=== PATIENT | female | born 1990 | race Caucasian/White ===

== ENCOUNTER 2016-09-28 02:50 | Emergency (ER) | payer BC ==
[2016-09-28 03:01] VITALS: BP 138/92
--- NOTE | 2016-09-28 03:13 | EDM.PDOC ---
ED HPI GI/ABDOMINAL - General Chief Complaint: Abdominal Pain Stated Complaint: UPPER ABDOMINAL PAIN Time Seen by Provider: 09/28/16 03:05 Source of Information: Reports: Patient History Limitations: Reports: No limitations - History of Present Illness INITIAL COMMENTS - FREE TEXT/NARRATIVE: 25-year-old female presents the ED with recurrent bouts of epigastric and right upper quadrant abdominal pain radiating through to her back in the infrascapular area. She states these attacks often help later in the evening before she goes to bed tonight is quite bad and did not settle with Tylenol or Motrin as it has in the past. Been having these type of attacks about every second night for several months. She's had 2 previous pregnancies. No history of documented gallstones. The pain has never made her vomit. All function she reports is normal. Denies any chance of is currently is menstruating. She also has a Norplant in place. No previous abdominal surgeries. It is constant with a colicky component. No heartburn or GERD symptoms except when she was . No burping or belching to relieve discomfort. Timing/Duration: Reports: Week(s):, Intermittent Location: other (Epigastric and across the upper abdomen bilaterally. Radiates through to her mid back at times.) Quality: Reports: ache, cramping, stabbing Severity: moderate (Her pain is rated as 5 or 6/10.) Improves with: Reports: other (Nothing seems to make it better or worse.) Context: Denies: sick contact, bad/questionable food, out of country travel, recent surgery, recent trauma, lifting, activity/exercise, other Associated Symptoms (-Female): Reports: back pain. Denies: chest pain, groin pain (Between her shoulder blades.), shoulder pain, constipation, diarrhea, bloody stools, fever/chills, loss of appetite, malaise, nausea/vomiting, other Treatments [employer]: Reports: Acetaminophen - Related Data Allergies/ADRs: Allergies Allergy/AdvReac Type Severity Reaction Status Date / Time No Known Allergies Allergy Verified 09/28/16 03:01 Home Meds: Home Meds . 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 Social & Family History - Tobacco Use Smoking Status *Q: Current Every Day Smoker Years of Tobacco use: 5 Packs/Tins Daily: 0.3 Used Tobacco, but Quit: No Second Hand Smoke Exposure: No - Caffeine Use Caffeine Use: Reports: Coffee, Tea - Recreational Drug Use Recreational Drug Use: No - Living Situation & Occupation Living situation: Reports: ED ROS GENERAL - Review of Systems Review Of Systems: See Below Constitutional: Denies: fever, chills, malaise, weakness, night sweats, diaphoresis, decreased appetite, weight loss HEENT: Reports: No symptoms Respiratory: Reports: No Symptoms Cardiovascular: Reports: No symptoms Endocrine: Reports: no symptoms GI/Abdominal: Reports: Abdominal pain (See history present illness). Denies: Black stool, Constipation, Diarrhea, Decreased appetite, Distension, Flatus, Hematemesis, Hematochezia, Melena, Mucous in stool, Nausea, Stool incontinence, Vomiting : Reports: no symptoms Musculoskeletal: Reports: no symptoms Skin: Reports: no symptoms Neurological: Reports: No Symptoms Psychiatric: Reports: No symptoms Hematologic/Lymphatic: Reports: no symptoms Immunologic: Reports: no symptoms ED EXAM, GI/ABD - Physical Exam Exam: See Below Exam Limited By: No limitations General Appearance: alert, WD/WN, no apparent distress Eyes: bilateral: normal appearance (No jaundice) Throat/Mouth: Normal inspection, Normal lips, Normal oropharynx Head: atraumatic, normocephalic Neck: normal inspection, supple, non-tender, full range of motion. No: carotid bruit, lymphadenopathy (L), lymphadenopathy (R), thyromegaly Respiratory/Chest: no respiratory distress, lungs clear, normal breath sounds, no accessory muscle use Cardiovascular: normal peripheral pulses, regular rate, rhythm, no edema, no gallop, no murmur GI/Abdominal: soft, non tender, no organomegaly, no abnormal bruit, no mass, hyperactive bowel sounds (Throughout all 4 quadrants.), other (Mild fullness appreciated of the right hemicolon.). No: Healy's sign Back Exam: normal inspection, full range of motion. No: CVA tenderness (L), CVA tenderness (R) Extremities: normal inspection, normal range of motion, non-tender, no pedal edema, normal capillary refill Neurological: alert, oriented, CN II-XII intact, normal cognition, normal gait, normal reflexes, no motor/sensory deficits Psychiatric: normal affect, normal mood Skin Exam: Warm, Dry, Intact, Normal color Course - Vital Signs Last Recorded V/S: Last Vital Signs Temp 36.6 C 09/28/16 02:57 Pulse 96 09/28/16 02:57 Resp 17 09/28/16 02:57 BP 138/92 H 09/28/16 02:57 Pulse Ox 100 09/28/16 02:57 - Orders/Labs/Meds Orders: Active Orders 24 hr Category Date Time Status Peripheral IV Care [RC] . DIRECTED Care 09/28/16 03:14 Active Abdomen 1V Flat [CR] Stat Exams 09/28/16 03:13 Taken Ketorolac [Toradol] Med 09/28/16 04:00 Active 30 mg IVPUSH ONETIME Sodium Chloride 0.9% [Saline Flush] Med 09/28/16 03:14 Active 10 ml FLUSH ASDIRECTED PRN Peripheral IV Insertion Adult [OM.PC] Stat Oth 09/28/16 03:14 Ordered Medication Orders Ketorolac Tromethamine (Toradol) 30 mg IVPUSH ONETIME [facility] Last Admin: 09/28/16 03:52 Dose: 30 mg Sodium Chloride (Saline Flush) 10 ml FLUSH ASDIRECTED PRN PRN Reason: Keep Vein Open Last Admin: 09/28/16 03:33 Dose: 10 ml Labs: Laboratory Tests 09/28/16 09/28/16 Range/Units 03:33 03:33 WBC 6.59 (3.98-10.04) K/mm3 RBC 5.17 (3.98-5.22) M/mm3 Hgb 15.6 (11.2-15.7) gm/L Hct 45.9 H (34.1-44.9) % MCV 88.8 (79.4-94.8) fl MCH 30.2 (25.6-32.2) pg MCHC 34.0 (32.2-35.5) g/dl RDW Std Deviation 41.0 (36.4-46.3) fL Plt Count 225 (182-369) K/mm3 MPV 10.3 (9.4-12.3) fl Neutrophils % (Manual) 49 (40-60) % Band Neutrophils % 0 (0-10) % Lymphocytes % (Manual) 44 H (20-40) % Atypical Lymphs % 0 % Monocytes % (Manual) 5 (2-10) % Eosinophils % (Manual) 2 (0.7-5.8) % Basophils % (Manual) 0 L (0.1-1.2) Platelet Estimate Adequate RBC Morph Comment Not Reportable Sodium 140 (136-145) mEq/L Potassium 3.6 (3.5-5.1) mEq/L Chloride 105 (98-107) mEq/L Carbon Dioxide 26 (21-32) mEq/L Anion Gap 12.6 (5-15) BUN 15 (7-18) mg/dL Creatinine 0.8 (0.55-1.02) mg/dL Est Cr Clr Drug Dosing 86.15 mL/min Estimated GFR (MDRD) > 60 (>60) mL/min BUN/Creatinine Ratio 18.8 H (14-18) Glucose 113 H (74-106) mg/dL Calcium 9.0 (8.5-10.1) mg/dL Total Bilirubin 0.4 (0.2-1.0) mg/dL AST 12 L (15-37) U/L ALT 17 (14-59) U/L Alkaline Phosphatase 50 (46-116) U/L C-Reactive Protein < 0.2 (<1.0) mg/dL Total Protein 8.5 H (6.4-8.2) g/dl Albumin 4.8 (3.4-5.0) g/dl Globulin 3.7 gm/dL Albumin/Globulin Ratio 1.3 (1-2) Lipase 176 (73-393) U/L Meds: Medications Generic Name Dose Route Start Last Admin Trade Name Freq PRN Reason Stop Dose Admin Ketorolac Tromethamine 30 mg 09/28/16 04:00 09/28/16 03:52 Toradol IVPUSH 30 mg ONETIME MAIRA Administration Sodium Chloride 10 ml 09/28/16 03:14 09/28/16 03:33 Saline Flush FLUSH 10 ml ASDIRECTED PRN Administration Keep Vein Open Discontinued Medications Generic Name Dose Route Start Last Admin Trade Name Freq PRN Reason Stop Dose Admin Hyoscyamine 0.125 mg 09/28/16 03:14 09/28/16 03:32 Hyomax-Sl SL 09/28/16 03:15 0.125 mg ONETIME ONE Administration Magnesium Citrate 240 ml 09/28/16 04:35 Citrate Of Magnesia PO 09/28/16 04:36 ONETIME ONE - Radiology Interpretation Free Text/Narrative:: 25-year-old female presents the ED with with reported recurrent bouts of epigastric and upper abdominal pain almost every other night for the last couple of months. Pain usually starts in later in the evening before going to bed and can last several hours. Closely shift no associated nausea vomiting or diarrhea. No relationship to ED. P.m. tonight is radiating through to her mid back. She states that at times it has done this in the past. No documented history of gallstones. Benign abdominal examination of hyperactive bowel sounds. Plan peripheral IV lock to be started. We'll give Levsin 0.125 mg sublingually to see if it alleviates the discomfort. KUB to be done. Routine labs to include a lipase and CRP. I will do a bedside ultrasound of her gallbladder.. - Re-Assessments/Exams Free Text/Narrative Re-Assessment/Exam: 09/28/16 03:48 KUB reveals increased stool throughout the right hemicolon and hepatic flexure and into the mid transverse colon. Bedside ultrasound performed shows a normal gallbladder and common bile duct without any signs of stones or pericholecystic fluid. Levsin under the tongue did not do much for her pain. She still rates the pain as a 4 5/10. Since she is driving we'll try Toradol 30 mg IV to see if that will alleviate her pain. 09/28/16 04:35 labs are back and are completely normal with a normal white count is 6.59. Chemistry including lipase is normal CRP was less than 0.2. Her pain is much improved after the Toradol 30 mg intravenously. Plan problem appears to be secondary to right hemicolon constipation. Syndrome with 8 ounces of Citroma mixed with 45 ounces of juice of choice to provide bowel cleanse. We discussed the use of MiraLax powder of similar symptoms develop using 17 g one scoop daily or every other day to prevent similar type problem. She'll follow up with her personal care provider of any further problems occur. Departure - Departure Time of Disposition: 04:37 Disposition: Home, Self-Care 01 Condition: fair Clinical Impression: Constipation by delayed colonic transit Abdominal pain Qualifiers: Abdominal location: epigastric Qualified Code(s): R10.13 - Epigastric pain Instructions: Constipation, Adult, [id number], Abdominal Pain, Adult, Easy-to -Read Referrals: PCP,None [Primary Care Provider] - Forms: ED Department Discharge Additional Instructions: Evaluation in the emergency room tonight in regards to recurrence right upper quadrant epigastric abdominal pain radiating through to the back. No associated nausea or vomiting. Pain is strongly colicky. Examination reveals scaphoid abdomen with lots of hyperactive bowel sounds suggesting bowels working very hard to push something along. No evidence of gallbladder disease on examination. X-ray of the abdomen done reveals increased stool throughout the right hemicolon and up into the right upper quadrant and towards the epigastrium compatible or your pain is. Lab work done reveals no evidence of gallbladder or pancreatic disease. White count was also normal suggesting no evidence of any kind of infection. Bedside ultrasound also revealed a normal gallbladder without any stones. You're treated with initially dose of Levsin under the tongue which did not help much. Subsequently given Toradol 30 mg intravenously for pain relief which seemed to work quite well. Treatment is suggested to be Citroma 8 ounces by mouth next with 4-5 ounces of juice of choice taken by mouth once. This usually start work in one to 2 hours and will usually the bowels work for 5 times alternating and some degree of diarrhea. This should provide bowel cleanse. I would suggest using MiraLax powder 17 g daily for approximately 7-10 days after bowel clans to prevent similar problem in ensure regular bowel function. Followup with personal care physician if any further problems occur. - My Orders Last 24 Hours: My Active Orders 09/28/16 03:13 Abdomen 1V Flat [CR] Stat 09/28/16 03:14 Peripheral IV Care [RC] . DIRECTED Sodium Chloride 0.9% [Saline Flush] 10 ml FLUSH ASDIRECTED PRN Peripheral IV Insertion Adult [OM.PC] Stat 09/28/16 04:00 Ketorolac [Toradol] 30 mg IVPUSH ONETIME - Assessment/Plan Last 24 Hours: My Active Orders 09/28/16 03:13 Abdomen 1V Flat [CR] Stat 09/28/16 03:14 Peripheral IV Care [RC] . DIRECTED Sodium Chloride 0.9% [Saline Flush] 10 ml FLUSH ASDIRECTED PRN Peripheral IV Insertion Adult [OM.PC] Stat 09/28/16 04:00 Ketorolac [Toradol] 30 mg IVPUSH ONETIME
[2016-09-28] MEDS ORDERED: Sodium Chloride 0.9% 10 ML Syringe FLUSH PRN (03:14)
[2016-09-28] MEDS ORDERED: Hyoscyamine 0.125 MG Tab.SL SL ONE (03:14)
[2016-09-28] MEDS ORDERED: Ketorolac 30 MG/ML SDV IVPUSH SCH (04:00)
[2016-09-28] MEDS ORDERED: Magnesium Citrate Solution 296 ML Bottle PO ONE (04:35)
--- NOTE | 2016-09-28 07:43 | CR ---
Abdomen: Supine view of the abdomen was obtained. Mild increased stool is noted throughout the colon. Bowel gas pattern is otherwise unremarkable. No abnormal calcifications or discrete soft tissue abnormality is seen. Bony structures are unremarkable. Impression: 1. Nothing acute is identified on supine abdominal x-ray, incidental note of mild increased stool within the colon. Diagnostic code #2
== END 2016-09-28 04:50 | disposition home or self-care (01) ==
LOC: JD.ED 02:50
DX: K59.01 Slow transit constipation (principal); R10.13 Epigastric pain; R10.11 Right upper quadrant pain; F17.210 Nicotine dependence, cigarettes, uncomplicated
CPT/HCPCS: 36415; 74000; 80053; 83690; 85025; 86140; 96374; 99284; A9270; J1885; J7050

== ENCOUNTER 2017-01-27 13:42 | Emergency (ER) | payer SELFPAY ==
[2017-01-27 14:01] VITALS: BP 119/73
--- NOTE | 2017-01-27 15:21 | CR ---
Thoracic spine: AP and lateral views of the thoracic spine were obtained. Mild scoliosis is noted. Vertebral body heights and disc spaces are maintained. Pedicles are intact. No fracture or subluxation is seen. Impression: 1. Mild scoliosis. Two-view thoracic spine study is otherwise unremarkable. Diagnostic code #2
--- NOTE | 2017-01-27 15:25 | EDM.PDOC ---
ED HPI GENERAL MEDICAL PROBLEM - General Chief Complaint: Abdominal Pain Stated Complaint: BACK/ABD PAIN Time Seen by Provider: 01/27/17 14:30 Source of Information: Reports: Patient History Limitations: Reports: No Limitations - History of Present Illness INITIAL COMMENTS - FREE TEXT/NARRATIVE: 26-year-old female presents for evaluation and treatment of mid back pain. Patient reports that she is experiencing pain in her mid to lower back that radiates through her into her epigastric area. She states this has been going on for a at least 2 years. She describes as a sharp pain. She reports that she woke up with this pain this morning. Has been constant throughout the day. Normally it is more episodic in nature. is present at bedside and states that she seemed to be having spasms en route to the ER. She was seen in the ER in September for this problem. She had labs and a abdominal x-ray performed which were essentially negative. Reports that she was also seen at [place] for the back pain. She was given nabumetone twice a day which did not seem to give any pain relief. She was also set up with physical therapy but was unable to go due to family commitments. She now has a appointment scheduled with [facility] in [place] tomorrow for the back pain. She reports 2 years ago she developed this back pain after having an epidural and giving to a boy. She then had a nexplanon placed. She denies any fevers, nausea, vomiting, diarrhea, constipation or any pain into her legs. No numbness or tingling into the legs. Last bowel movement was yesterday. Unsure of her last menstrual period as she has a nexplanon in place. 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 Denies: Nausea, Vomiting : Reports: No Symptoms Musculoskeletal: Reports: Back Pain (mid back radiating through abdomen to the epigastric area). Denies: Leg Pain Neurological: Denies: Numbness, Tingling ED EXAM, UPPER BACK/NECK PAIN - Physical Exam Exam: See Below Exam Limited By: No Limitations General Appearance: Alert, WD/WN, No Apparent Distress Ears Exam: Normal External Exam Nose Exam: Normal Inspection Throat/Mouth Exam: Normal Inspection, Normal Voice, No Airway Compromise Neck Exam: Non-Tender, Normal Alignment, Normal Inspection. No: Tender Lateral , Tender Midline Cardiovascular/Respiratory: Regular Rate, Rhythm, No M/R/G, Normal Breath Sounds , No Respiratory Distress GI/Abdominal: Normal Bowel Sounds, Soft, Non-Tender Back Exam: Normal Inspection, Full Range of Motion, Muscle Spasm (right mid back around t8-t12), Paraspinal Tenderness (left mid back around t8-t12). No: Decreased Range of Motion, Vertebral Tenderness Neurologic: Alert, Normal Mood/Affect Psychiatric: Normal Affect, Normal Mood Skin Exam: Normal Color, Warm/Dry. No: Rash Course - Vital Signs Last Recorded V/S: Last Vital Signs Temp 36.2 C 01/27/17 13:55 Pulse 69 01/27/17 13:55 Resp 16 01/27/17 13:55 BP 119/73 01/27/17 13:55 Pulse Ox 100 01/27/17 13:55 - Radiology Interpretation Free Text/Narrative:: xray of the thoracic spine impression per Dr. Kyle: Mild scoliosis. two-view spine study is otherwise unremarkable CT Results Date: 01/27/17 - Re-Assessments/Exams Free Text/Narrative Re-Assessment/Exam: 01/27/17 14:39 Discussed with the patient what she would like from today's visit. She has an appointment with [facility] tomorrow. She has been seen twice previously for this problem - one here in the ER and another time at [place]. I reviewed the patient's September ER visit. Labs and abdominal xray completed. Something like pancreatitis unlikely given the prolonged time period. Other acute abdominal problems also unlikely given the longevity of her problem. We decided to go ahead and get an xray of her back for further evaluation. We then decided to treat her pain and she will follow-up with [facility] tomorrow as planned. 01/27/17 15:23 Reviewed the xray results. Declined pain medication in the ER. Will prescribe a muscle relaxer and pain medication as needed. Discharge instructions as documented . Departure - Departure Time of Disposition: 15:25 Disposition: Home, Self-Care 01 Condition: Good Clinical Impression: Back pain - Discharge Information Prescriptions: Acetaminophen/HYDROcodone [Arthurdale 325-5 MG] 1 tab PO Q6H PRN #12 tablet PRN Reason: Pain Orphenadrine [Norflex] 100 mg PO BID #20 tab.er Instructions: Back Pain, Adult Referrals: PCP,None [Primary Care Provider] - Forms: ED Department Discharge Additional Instructions: Recommend taking the Norflex 1 tab twice a day. This medication is for muscle relaxation. It may Make you drowsy. Do not drive or operate machinery until you know how this medication will affect you. Recommend taking [id number] ibuprofen 600 mg every 6-8 hours. For pain not relieved by ibuprofen take Arthurdale one tablet every 4-6 hours for severe pain. Do not drive or operate machinery within 12 hours taking the Arthurdale. norco can be habit-forming, I recommend you take as few of these as needed to control your pain. Follow-up with [facility] tomorrow as planned. Recommend using moist heat to the back to help with muscle spasms. may also try topical products such as icy hot or BenGay for additional pain relief as needed. Please return to the ER if your symptoms change or worsen.
== END 2017-01-27 15:40 | disposition home or self-care (01) ==
LOC: JD.ED 13:42
DX: M54.6 Pain in thoracic spine (principal); F17.210 Nicotine dependence, cigarettes, uncomplicated
CPT/HCPCS: 72070; 72070-26; 99283; 99284